=== PATIENT | female | born 1955 | race Caucasian/White ===

== ENCOUNTER 2018-01-03 16:24 | Inpatient (IN) | payer BC ==
[2018-01-03] MEDS: LORAZEPAM 2 MG INJ IV (21:57)
[2018-01-03] MEDS: SOD CHLORIDE 0.9% 1,000 ML IV (22:05)
[2018-01-03 22:18] LABS: ADD MAN DIFF? NO
[2018-01-03 22:26] LABS: WHITE BLOOD COUNT 13.3 10^3/ul (4.8-10.8)
[2018-01-03 22:26] LABS: BASOPHILS % 0.2 % (0.0-2.0); EOSINOPHILS % 0.2 % (0.0-7.0); HEMATOCRIT 38.7 % (37.0-47.0); HEMOGLOBIN 12.8 g/dl (12.0-16.0); LYMPHOCYTES # 2.7 10^3/ul (0.8-2.9); LYMPHOCYTES % 20.7 % (15.0-51.0); MEAN CORPUSCULAR HEMOGLOBIN 29.9 pg (29.0-33.0); MEAN CORPUSCULAR HGB CONC 33.1 g/dl (32.0-37.0); MEAN CORPUSCULAR VOLUME 90.4 fl (82.0-101.0); MEAN PLATELET VOLUME 9.4 fl (7.4-10.4); MONOCYTE # 1.2 10^3/ul (0.3-0.9); MONOCYTES % 8.7 % (0.0-11.0); NEUTROPHIL # 9.3 10^3/ul (1.6-7.5); NEUTROPHILS % 69.9 % (39.0-77.0); PLATELET COUNT 323 10^3/UL (140-415); RED BLOOD COUNT 4.28 10^6/ul (4.20-5.40); RED CELL DISTRIBUTION WIDTH 13.3 % (11.5-14.5)
[2018-01-03 22:36] LABS: ADD UMIC YES; UR ASCORBIC ACID NEGATIVE (NEGATIVE); UR BILIRUBIN (Dip) NEGATIVE (NEGATIVE); UR BLOOD (Dip) NEGATIVE (NEGATIVE); UR CLARITY SLIGHTLY CLOUDY (CLEAR); UR COLOR AMBER (YELLOW); UR GLUCOSE (Dip) NEGATIVE (NEGATIVE); UR KETONES (Dip) 1+ mg/dL (NEGATIVE); UR LEUKOCYTE ESTERASE (Dip) NEGATIVE Leu/ul (NEGATIVE); UR NITRITE (Dip) NEGATIVE (NEGATIVE); UR RBC 0 /HPF (0-5); UR SPECIFIC GRAVITY (Dip) 1.027 (1.003-1.030); UR TOTAL PROTEIN (Dip) 1+ mg/dl (NEGATIVE); UR UROBILINOGEN (Dip) 2+ mg/dL (NEGATIVE); UR WBC 0 /HPF (0-5)
[2018-01-03 22:52] LABS: INR 1.14; PROTIME 14.8 Sec (11.9-14.9); PT RATIO 1.2
[2018-01-03 22:53] LABS: PARTIAL THROMBOPLASTIN TIME 34.3 Sec (25.0-35.0)
[2018-01-03 22:56] LABS: ALANINE AMINOTRANSFERASE 50 IU/L (13-69); ALBUMIN 4.9 g/dl (3.3-4.9); ALBUMIN/GLOBULIN RATIO 1.13; ALKALINE PHOSPHATASE 98 IU/L (42-121); ANION GAP 20 (8-16); ASPARTATE AMINO TRANSFERASE 52 IU/L (15-46); BILIRUBIN,INDIRECT 0.7 mg/dl (0-1.1); BILIRUBIN,TOTAL 0.7 mg/dl (0.2-1.3); BLOOD UREA NITROGEN 32 mg/dl (7-20); CALCIUM 9.5 mg/dl (8.4-10.2); CARBON DIOXIDE 29 mmol/L (21-31); CHLORIDE 102 mmol/L (97-110); CREATININE 0.84 mg/dl (0.44-1.00); GLUCOSE 114 mg/dl (70-220); POTASSIUM 3.4 mmol/L (3.5-5.1); SODIUM 148 mmol/L (135-144); TOTAL PROTEIN 9.2 g/dl (6.1-8.1)
[2018-01-03 23:11] LABS: LACTIC ACID 1.9 mmol/L (0.5-2.0)
[2018-01-04] MEDS ORDERED: ACETAMINOPHEN 325 MG TAB PO
[2018-01-04] MEDS ORDERED: ONDANSETRON 4 MG INJ IV ×2 (00:30)
[2018-01-04] MEDS ORDERED: NACL 0.9% 3 ML SYG IV (00:30)
[2018-01-04] MEDS ORDERED: ACETAMINOPHEN 650 MG SUPP PR (00:30)
[2018-01-04] MEDS: ACETAMINOPHEN 500 MG TAB PO (00:39)
[2018-01-04 00:44] LABS: LACTIC ACID 1.2 mmol/L (0.5-2.0)
[2018-01-04] MEDS ORDERED: LORAZEPAM 2 MG INJ IV (01:30)
[2018-01-04] MEDS: D5-0.2 NACL + KCL 20 MEQ 1,000 ML IV ×3 (02:48→17:07)
[2018-01-04 07:09] LABS: ADD MAN DIFF? NO
[2018-01-04 07:26] LABS: WHITE BLOOD COUNT 9.4 10^3/ul (4.8-10.8)
[2018-01-04 07:26] LABS: BASOPHILS % 0.2 % (0.0-2.0); EOSINOPHILS # 0.1 10^3/ul (0.0-0.5); EOSINOPHILS % 1.4 % (0.0-7.0); HEMATOCRIT 34.2 % (37.0-47.0); HEMOGLOBIN 11.1 g/dl (12.0-16.0); LYMPHOCYTES # 2.6 10^3/ul (0.8-2.9); LYMPHOCYTES % 27.2 % (15.0-51.0); MEAN CORPUSCULAR HEMOGLOBIN 30.3 pg (29.0-33.0); MEAN CORPUSCULAR HGB CONC 32.5 g/dl (32.0-37.0); MEAN CORPUSCULAR VOLUME 93.4 fl (82.0-101.0); MEAN PLATELET VOLUME 9.7 fl (7.4-10.4); MONOCYTE # 0.9 10^3/ul (0.3-0.9); MONOCYTES % 9.4 % (0.0-11.0); NEUTROPHIL # 5.8 10^3/ul (1.6-7.5); NEUTROPHILS % 61.5 % (39.0-77.0); PLATELET COUNT 260 10^3/UL (140-415); RED BLOOD COUNT 3.66 10^6/ul (4.20-5.40); RED CELL DISTRIBUTION WIDTH 13.5 % (11.5-14.5)
[2018-01-04 07:36] LABS: LACTIC ACID 0.9 mmol/L (0.5-2.0)
[2018-01-04 07:55] LABS: ALANINE AMINOTRANSFERASE 40 IU/L (13-69); ALBUMIN 3.5 g/dl (3.3-4.9); ALBUMIN/GLOBULIN RATIO 0.94; ALKALINE PHOSPHATASE 72 IU/L (42-121); ANION GAP 11 (8-16); ASPARTATE AMINO TRANSFERASE 41 IU/L (15-46); BILIRUBIN,INDIRECT 0.6 mg/dl (0-1.1); BILIRUBIN,TOTAL 0.6 mg/dl (0.2-1.3); BLOOD UREA NITROGEN 23 mg/dl (7-20); CALCIUM 8.8 mg/dl (8.4-10.2); CARBON DIOXIDE 30 mmol/L (21-31); CHLORIDE 109 mmol/L (97-110); CHOL/HDL RATIO 3.4 RATIO; CHOLESTEROL 134 mg/dl (100-200); CREATININE 0.56 mg/dl (0.44-1.00); GLUCOSE 101 mg/dl (70-220); HDL CHOLESTEROL 39 mg/dl (35-98); LDL CHOLESTEROL,CALCULATED 75 mg/dl; MAGNESIUM 2.3 mg/dl (1.7-2.5); POTASSIUM 3.4 mmol/L (3.5-5.1); SODIUM 147 mmol/L (135-144); TOTAL PROTEIN 7.2 g/dl (6.1-8.1); TRIGLYCERIDES 102 mg/dl (0-149)
[2018-01-04 07:57] LABS: HEMOGLOBIN A1C 5.4 % (0-5.9)
[2018-01-04] MEDS ORDERED: POTASSIUM CHLORIDE (SR) 20 MEQ TAB PO (08:51)
[2018-01-04 08:52] LABS: THYROID STIMULATING HORMONE 0.076 MIU/L (0.465-4.680)
[2018-01-04] MEDS: POTASSIUM CHLORIDE 100 ML IVPB ×2 (10:03→12:03)
[2018-01-04 14:41] LABS: FREE T4 (FREE THYROXINE) 1.33 ng/dl (0.78-2.44); T4 (THYROXINE) 9.8 ug/dl (5.5-11.0)
[2018-01-04 16:25] LABS: AMPHETAMINE/METHAMPHETAMINE Negative (NEGATIVE); BARBITURATES Negative (NEGATIVE); BENZODIAZEPINES Positive (NEGATIVE); CANNABINOIDS Negative (NEGATIVE); COCAINE Negative (NEGATIVE); OPIATES Negative (NEGATIVE)
[2018-01-04] MEDS: HALOPERIDOL 5 MG INJ IM (18:53)
[2018-01-05 04:56] LABS: ADD MAN DIFF? NO
[2018-01-05 05:05] LABS: BASOPHILS % 0.3 % (0.0-2.0); EOSINOPHILS # 0.2 10^3/ul (0.0-0.5); EOSINOPHILS % 2.8 % (0.0-7.0); HEMOGLOBIN 11.4 g/dl (12.0-16.0); LYMPHOCYTES # 2.3 10^3/ul (0.8-2.9); LYMPHOCYTES % 28.3 % (15.0-51.0); MEAN CORPUSCULAR HEMOGLOBIN 30.1 pg (29.0-33.0); MEAN CORPUSCULAR HGB CONC 32.6 g/dl (32.0-37.0); MEAN CORPUSCULAR VOLUME 92.3 fl (82.0-101.0); MEAN PLATELET VOLUME 9.3 fl (7.4-10.4); MONOCYTE # 0.6 10^3/ul (0.3-0.9); MONOCYTES % 7.4 % (0.0-11.0); NEUTROPHIL # 4.9 10^3/ul (1.6-7.5); NEUTROPHILS % 60.9 % (39.0-77.0); PLATELET COUNT 234 10^3/UL (140-415); RED BLOOD COUNT 3.79 10^6/ul (4.20-5.40); RED CELL DISTRIBUTION WIDTH 13.3 % (11.5-14.5)
[2018-01-05 05:27] LABS: ANION GAP 12 (8-16); BLOOD UREA NITROGEN 12 mg/dl (7-20); CALCIUM 8.7 mg/dl (8.4-10.2); CARBON DIOXIDE 31 mmol/L (21-31); CHLORIDE 107 mmol/L (97-110); GLUCOSE 90 mg/dl (70-220); MAGNESIUM 2.1 mg/dl (1.7-2.5); PHOSPHORUS 3.4 mg/dl (2.5-4.9); POTASSIUM 3.8 mmol/L (3.5-5.1); SODIUM 146 mmol/L (135-144)
[2018-01-05] MEDS: D5-0.2 NACL + KCL 20 MEQ 1,000 ML IV ×3 (06:29→23:55)
[2018-01-05] MEDS: HALOPERIDOL 5 MG INJ IM (12:43)
[2018-01-05] MEDS: LORAZEPAM 2 MG INJ IV (16:00)
[2018-01-05] MEDS: AMANTADINE 100 MG CAP PO (20:46)
[2018-01-06 07:01] LABS: ANION GAP 14 (8-16); BLOOD UREA NITROGEN 5 mg/dl (7-20); CALCIUM 8.5 mg/dl (8.4-10.2); CARBON DIOXIDE 27 mmol/L (21-31); CHLORIDE 107 mmol/L (97-110); CREATININE 0.46 mg/dl (0.44-1.00); GLUCOSE 103 mg/dl (70-220); MAGNESIUM 1.8 mg/dl (1.7-2.5); POTASSIUM 3.5 mmol/L (3.5-5.1); SODIUM 144 mmol/L (135-144)
[2018-01-06] MEDS: AMANTADINE 100 MG CAP PO ×2 (09:00→19:44)
[2018-01-06] MEDS: D5-0.2 NACL + KCL 20 MEQ 1,000 ML IV (13:59)
[2018-01-06] MEDS: LORAZEPAM 2 MG INJ IV ×3 (15:26→20:20)
[2018-01-06] MEDS ORDERED: LORAZEPAM 2 MG INJ IV (15:30)
[2018-01-07] MEDS: D5-0.2 NACL + KCL 20 MEQ 1,000 ML IV ×3 (01:15→18:22)
[2018-01-07 07:34] LABS: HIV 1&2 ANTIBODY NEGATIVE (NEGATIVE)
[2018-01-07] MEDS: AMANTADINE 100 MG CAP PO ×2 (08:35→21:00)
[2018-01-07 18:56] LABS: RAPID PLASMA REAGIN NONREACTIVE (NR)
[2018-01-07] MEDS: LORAZEPAM 2 MG INJ IV (20:30)
[2018-01-08] MEDS: D5-0.2 NACL + KCL 20 MEQ 1,000 ML IV ×3 (01:18→23:37)
[2018-01-08] MEDS: LORAZEPAM 2 MG INJ IV ×4 (02:30→22:13)
[2018-01-08 05:12] LABS: ADD MAN DIFF? NO
[2018-01-08 05:24] LABS: BASOPHILS % 0.3 % (0.0-2.0); EOSINOPHILS # 0.2 10^3/ul (0.0-0.5); EOSINOPHILS % 3.1 % (0.0-7.0); HEMATOCRIT 36.9 % (37.0-47.0); HEMOGLOBIN 12.1 g/dl (12.0-16.0); LYMPHOCYTES # 1.6 10^3/ul (0.8-2.9); LYMPHOCYTES % 26.8 % (15.0-51.0); MEAN CORPUSCULAR HEMOGLOBIN 29.9 pg (29.0-33.0); MEAN CORPUSCULAR HGB CONC 32.8 g/dl (32.0-37.0); MEAN CORPUSCULAR VOLUME 91.1 fl (82.0-101.0); MEAN PLATELET VOLUME 9.5 fl (7.4-10.4); MONOCYTE # 0.4 10^3/ul (0.3-0.9); MONOCYTES % 6.7 % (0.0-11.0); NEUTROPHIL # 3.8 10^3/ul (1.6-7.5); NEUTROPHILS % 62.8 % (39.0-77.0); PLATELET COUNT 279 10^3/UL (140-415); RED BLOOD COUNT 4.05 10^6/ul (4.20-5.40)
[2018-01-08 05:24] LABS: WHITE BLOOD COUNT 6.1 10^3/ul (4.8-10.8)
[2018-01-08 05:48] LABS: ANION GAP 14 (8-16); BLOOD UREA NITROGEN 3 mg/dl (7-20); CALCIUM 9.1 mg/dl (8.4-10.2); CARBON DIOXIDE 28 mmol/L (21-31); CHLORIDE 105 mmol/L (97-110); CREATININE 0.49 mg/dl (0.44-1.00); GLUCOSE 108 mg/dl (70-220); POTASSIUM 4.2 mmol/L (3.5-5.1); SODIUM 143 mmol/L (135-144)
[2018-01-08] MEDS: AMANTADINE 100 MG CAP PO ×2 (08:11→20:56)
[2018-01-09] MEDS ORDERED: VANCOMYCIN IV PER PHARMACY XX
[2018-01-09] MEDS: VANCOMYCIN 1 GM 250 ML IVPB (01:00)
[2018-01-09 06:08] LABS: ADD MAN DIFF? NO
[2018-01-09 06:10] LABS: WHITE BLOOD COUNT 5.9 10^3/ul (4.8-10.8)
[2018-01-09 06:10] LABS: BASOPHILS % 0.3 % (0.0-2.0); EOSINOPHILS # 0.3 10^3/ul (0.0-0.5); EOSINOPHILS % 4.2 % (0.0-7.0); HEMATOCRIT 36.6 % (37.0-47.0); HEMOGLOBIN 11.8 g/dl (12.0-16.0); LYMPHOCYTES # 2.3 10^3/ul (0.8-2.9); LYMPHOCYTES % 38.2 % (15.0-51.0); MEAN CORPUSCULAR HEMOGLOBIN 29.9 pg (29.0-33.0); MEAN CORPUSCULAR HGB CONC 32.2 g/dl (32.0-37.0); MEAN CORPUSCULAR VOLUME 92.9 fl (82.0-101.0); MONOCYTE # 0.5 10^3/ul (0.3-0.9); MONOCYTES % 8.4 % (0.0-11.0); NEUTROPHIL # 2.9 10^3/ul (1.6-7.5); NEUTROPHILS % 48.7 % (39.0-77.0); PLATELET COUNT 277 10^3/UL (140-415); RED BLOOD COUNT 3.94 10^6/ul (4.20-5.40); RED CELL DISTRIBUTION WIDTH 13.1 % (11.5-14.5)
[2018-01-09 06:35] LABS: ANION GAP 13 (8-16); BLOOD UREA NITROGEN 5 mg/dl (7-20); CARBON DIOXIDE 29 mmol/L (21-31); CHLORIDE 105 mmol/L (97-110); CREATININE 0.58 mg/dl (0.44-1.00); GLUCOSE 96 mg/dl (70-220); POTASSIUM 3.9 mmol/L (3.5-5.1); SODIUM 143 mmol/L (135-144)
[2018-01-09] MEDS: AMANTADINE 100 MG CAP PO ×2 (08:15→20:14)
[2018-01-09] MEDS: LORAZEPAM 2 MG INJ IV ×3 (09:46→23:35)
[2018-01-09] MEDS: D5-0.2 NACL + KCL 20 MEQ 1,000 ML IV ×2 (12:47→19:48)
[2018-01-09] MEDS: VANCOMYCIN 750 MG in SOD CHLORIDE 0.9% 150 ML IVPB (13:47)
[2018-01-10] MEDS: VANCOMYCIN 750 MG in SOD CHLORIDE 0.9% 150 ML IVPB ×2 (01:00→13:40)
[2018-01-10] MEDS: D5-0.2 NACL + KCL 20 MEQ 1,000 ML IV ×3 (03:00→17:33)
[2018-01-10 05:53] LABS: ADD MAN DIFF? NO
[2018-01-10 06:03] LABS: BASOPHILS % 0.3 % (0.0-2.0); EOSINOPHILS # 0.2 10^3/ul (0.0-0.5); EOSINOPHILS % 3.7 % (0.0-7.0); HEMATOCRIT 39.5 % (37.0-47.0); HEMOGLOBIN 12.8 g/dl (12.0-16.0); LYMPHOCYTES # 1.9 10^3/ul (0.8-2.9); LYMPHOCYTES % 32.4 % (15.0-51.0); MEAN CORPUSCULAR HGB CONC 32.4 g/dl (32.0-37.0); MEAN CORPUSCULAR VOLUME 92.5 fl (82.0-101.0); MEAN PLATELET VOLUME 9.1 fl (7.4-10.4); MONOCYTE # 0.5 10^3/ul (0.3-0.9); MONOCYTES % 7.7 % (0.0-11.0); NEUTROPHIL # 3.3 10^3/ul (1.6-7.5); NEUTROPHILS % 55.6 % (39.0-77.0); PLATELET COUNT 289 10^3/UL (140-415); RED BLOOD COUNT 4.27 10^6/ul (4.20-5.40)
[2018-01-10 06:03] LABS: WHITE BLOOD COUNT 5.9 10^3/ul (4.8-10.8)
[2018-01-10 06:36] LABS: ANION GAP 16 (8-16); BLOOD UREA NITROGEN 4 mg/dl (7-20); CALCIUM 9.5 mg/dl (8.4-10.2); CARBON DIOXIDE 29 mmol/L (21-31); CHLORIDE 105 mmol/L (97-110); CREATININE 0.56 mg/dl (0.44-1.00); GLUCOSE 109 mg/dl (70-220); POTASSIUM 4.7 mmol/L (3.5-5.1); SODIUM 145 mmol/L (135-144)
[2018-01-10] MEDS: AMANTADINE 100 MG CAP PO ×2 (08:28→21:00)
[2018-01-10] MEDS: LORAZEPAM 2 MG INJ IV ×2 (10:27→17:29)
[2018-01-10 13:04] LABS: VANCOMYCIN,TROUGH 10.9 ug/ml (10.0-20.0)
[2018-01-10 20:27] LABS: INR 0.99; PROTIME 13.2 Sec (11.9-14.9)
[2018-01-11] MEDS: LORAZEPAM 2 MG INJ IV ×4 (00:28→20:49)
[2018-01-11] MEDS: VANCOMYCIN 750 MG in SOD CHLORIDE 0.9% 150 ML IVPB ×2 (00:28→14:57)
[2018-01-11] MEDS: D5-0.2 NACL + KCL 20 MEQ 1,000 ML IV ×3 (05:16→20:53)
[2018-01-11] MEDS: AMANTADINE 100 MG CAP PO ×2 (09:00→20:33)
[2018-01-11 09:04] LABS: ADD MAN DIFF? NO
[2018-01-11 09:15] LABS: WHITE BLOOD COUNT 6.4 10^3/ul (4.8-10.8)
[2018-01-11 09:15] LABS: BASOPHILS % 0.3 % (0.0-2.0); EOSINOPHILS # 0.2 10^3/ul (0.0-0.5); EOSINOPHILS % 3.1 % (0.0-7.0); HEMATOCRIT 37.4 % (37.0-47.0); HEMOGLOBIN 12.4 g/dl (12.0-16.0); LYMPHOCYTES # 1.9 10^3/ul (0.8-2.9); MEAN CORPUSCULAR HEMOGLOBIN 30.4 pg (29.0-33.0); MEAN CORPUSCULAR HGB CONC 33.2 g/dl (32.0-37.0); MEAN CORPUSCULAR VOLUME 91.7 fl (82.0-101.0); MONOCYTE # 0.6 10^3/ul (0.3-0.9); NEUTROPHIL # 3.7 10^3/ul (1.6-7.5); NEUTROPHILS % 57.3 % (39.0-77.0); PLATELET COUNT 246 10^3/UL (140-415); RED BLOOD COUNT 4.08 10^6/ul (4.20-5.40); RED CELL DISTRIBUTION WIDTH 13.2 % (11.5-14.5)
[2018-01-11 09:24] LABS: ANION GAP 11 (8-16); BLOOD UREA NITROGEN 5 mg/dl (7-20); CALCIUM 9.2 mg/dl (8.4-10.2); CARBON DIOXIDE 28 mmol/L (21-31); CHLORIDE 110 mmol/L (97-110); CREATININE 0.55 mg/dl (0.44-1.00); GLUCOSE 101 mg/dl (70-220); POTASSIUM 4.8 mmol/L (3.5-5.1); SODIUM 144 mmol/L (135-144)
[2018-01-11] MEDS: PROPOFOL 60 ML (12:56)
[2018-01-11] MEDS: LIDOCAINE 2% (SDV) 5 ML INJ (12:56)
[2018-01-11] MEDS: HALOPERIDOL 5 MG INJ IM (16:26)
[2018-01-11] MEDS: HYDROCODONE/APAP (5/325) TAB PEG (20:38)
[2018-01-12] MEDS: VANCOMYCIN 750 MG in SOD CHLORIDE 0.9% 150 ML IVPB ×2 (00:19→12:32)
[2018-01-12] MEDS: LORAZEPAM 2 MG INJ IV ×3 (03:03→17:23)
[2018-01-12] MEDS: HYDROCODONE/APAP (5/325) TAB PEG ×3 (03:04→17:23)
[2018-01-12 06:19] LABS: ADD MAN DIFF? NO
[2018-01-12 06:36] LABS: BASOPHILS % 0.2 % (0.0-2.0); EOSINOPHILS # 0.1 10^3/ul (0.0-0.5); EOSINOPHILS % 0.6 % (0.0-7.0); HEMATOCRIT 37.1 % (37.0-47.0); HEMOGLOBIN 12.1 g/dl (12.0-16.0); LYMPHOCYTES # 1.4 10^3/ul (0.8-2.9); LYMPHOCYTES % 13.4 % (15.0-51.0); MEAN CORPUSCULAR HEMOGLOBIN 29.7 pg (29.0-33.0); MEAN CORPUSCULAR HGB CONC 32.6 g/dl (32.0-37.0); MEAN CORPUSCULAR VOLUME 90.9 fl (82.0-101.0); MEAN PLATELET VOLUME 9.4 fl (7.4-10.4); MONOCYTE # 0.5 10^3/ul (0.3-0.9); MONOCYTES % 4.9 % (0.0-11.0); NEUTROPHIL # 8.5 10^3/ul (1.6-7.5); NEUTROPHILS % 80.6 % (39.0-77.0); PLATELET COUNT 262 10^3/UL (140-415); RED BLOOD COUNT 4.08 10^6/ul (4.20-5.40); RED CELL DISTRIBUTION WIDTH 13.1 % (11.5-14.5)
[2018-01-12 06:36] LABS: WHITE BLOOD COUNT 10.5 10^3/ul (4.8-10.8)
[2018-01-12 07:01] LABS: ANION GAP 14 (8-16); BLOOD UREA NITROGEN 7 mg/dl (7-20); CARBON DIOXIDE 27 mmol/L (21-31); CHLORIDE 105 mmol/L (97-110); CREATININE 0.58 mg/dl (0.44-1.00); GLUCOSE 135 mg/dl (70-220); POTASSIUM 3.5 mmol/L (3.5-5.1); SODIUM 142 mmol/L (135-144)
[2018-01-12] MEDS: AMANTADINE 100 MG CAP PO ×2 (09:36→20:44)
[2018-01-12] MEDS: D5-0.2 NACL + KCL 20 MEQ 1,000 ML IV (09:59)
[2018-01-13] MEDS: VANCOMYCIN 750 MG in SOD CHLORIDE 0.9% 150 ML IVPB ×2 (00:16→12:48)
[2018-01-13] MEDS: HYDROCODONE/APAP (5/325) TAB PEG ×4 (00:21→20:47)
[2018-01-13] MEDS: LORAZEPAM 2 MG INJ IV ×3 (00:21→18:08)
[2018-01-13] MEDS: AMANTADINE 100 MG CAP PO ×2 (08:45→20:44)
[2018-01-13] MEDS ORDERED: FUROSEMIDE 20 MG TAB PO (10:30)
[2018-01-13] MEDS: DIAZEPAM 5 MG TAB PO (12:55)
[2018-01-14] MEDS: VANCOMYCIN 750 MG in SOD CHLORIDE 0.9% 150 ML IVPB ×2 (00:26→13:19)
[2018-01-14] MEDS: HYDROCODONE/APAP (5/325) TAB PEG ×2 (02:32→08:24)
[2018-01-14] MEDS: LORAZEPAM 2 MG INJ IV ×2 (02:32→10:31)
[2018-01-14] MEDS: DIAZEPAM 5 MG TAB PO (08:24)
[2018-01-14] MEDS: AMANTADINE 100 MG CAP PO ×2 (08:24→21:55)
[2018-01-14] MEDS: FUROSEMIDE 20 MG TAB PO (08:25)
[2018-01-14] MEDS: LORAZEPAM 0.5 MG TAB PO (15:50)
[2018-01-14] MEDS: HALOPERIDOL 5 MG INJ IM (23:26)
[2018-01-15] MEDS: VANCOMYCIN 750 MG in SOD CHLORIDE 0.9% 150 ML IVPB ×2 (00:52→14:11)
[2018-01-15] MEDS: LORAZEPAM 0.5 MG TAB PO ×2 (01:56→17:06)
[2018-01-15] MEDS: AMANTADINE 100 MG CAP PO ×2 (08:46→21:15)
[2018-01-15] MEDS: DIAZEPAM 5 MG TAB PO (08:46)
[2018-01-15] MEDS: FUROSEMIDE 20 MG TAB PO (08:46)
[2018-01-15] MEDS: HYDROCODONE/APAP (5/325) TAB PEG ×2 (08:51→17:06)
[2018-01-15] MEDS: POLYETHYLENE GLYCOL 17 GM PACKET GTB (14:11)
[2018-01-16] MEDS: LORAZEPAM 0.5 MG TAB PO ×2 (04:17→23:22)
[2018-01-16] MEDS: AMANTADINE 100 MG CAP PO ×2 (09:01→21:35)
[2018-01-16] MEDS: FUROSEMIDE 20 MG TAB PO (09:02)
[2018-01-16] MEDS: MAGNESIUM HYDROXIDE 30ML CUP PO (18:17)
[2018-01-16] MEDS: HYDROCODONE/APAP (5/325) TAB PEG (21:35)
[2018-01-17] MEDS: FUROSEMIDE 20 MG TAB PO (09:13)
[2018-01-17] MEDS: AMANTADINE 100 MG CAP PO (09:13)
[2018-01-17] MEDS: LORAZEPAM 0.5 MG TAB PO (13:12)
== END 2018-01-17 15:05 | disposition home health service (06) | DRG 64 ==
LOC: E/R 16:24 → PP2 23:57 → MS2 01-08 20:51 → ICU 01-07 12:55 → PP2 23:57
PROC: 0DH63UZ Insertion of Feeding Device into Stomach, Percutaneous Approach (ICD-10-PCS; principal; 2018-01-11 12:50)
DX: I62.01 Nontraumatic acute subdural hemorrhage (principal); G92 Toxic encephalopathy; E43 Unspecified severe protein-calorie malnutrition; G93.6 Cerebral edema; E87.0 Hyperosmolality and hypernatremia; R78.81 Bacteremia; R13.10 Dysphagia, unspecified; G20 Parkinson's disease; E86.0 Dehydration; F41.9 Anxiety disorder, unspecified; E05.80 Other thyrotoxicosis without thyrotoxic crisis or storm; Z68.25 Body mass index [BMI] 25.0-25.9, adult; F13.90 Sedative, hypnotic, or anxiolytic use, unspecified, uncomplicated
CPT/HCPCS: 36415; 70450; 70490; 70551; 71045; 74018; 80048; 80053; 80061; 80202; 80307; 81001; 82607; 83036; 83605; 83735; 84100; 84436; 84439; 84443; 85025; 85610; 85730; 86592; 86703; 87040; 87081; 87086; 87400; 92522; 92526; 92610; 93005; 93306; 96374; 99285-25; G0378

== ENCOUNTER 2018-01-17 20:59 | Emergency (ER) | payer BC ==
[2018-01-18] MEDS: LORAZEPAM 0.5 MG TAB GTB (01:13)
[2018-01-18] MEDS: FUROSEMIDE 20 MG TAB GTB (01:13)
[2018-01-18] MEDS: AMANTADINE 100 MG CAP GTB (01:14)
== END 2018-01-18 11:26 | disposition home or self-care (01) ==
LOC: E/R 20:59
DX: Z71.89 Other specified counseling (principal); R40.2352 Coma scale, best motor response, localizes pain, at arrival to emergency department; G20 Parkinson's disease; R40.2222 Coma scale, best verbal response, incomprehensible words, at arrival to emergency department; R40.2142 Coma scale, eyes open, spontaneous, at arrival to emergency department
CPT/HCPCS: 99284

== ENCOUNTER 2018-02-22 09:56 | Day surgery (SDC) | payer BC ==
[2018-02-22] MEDS ORDERED: LIDOCAINE 2% (SDV) 5 ML INJ (12:22)
[2018-02-22] MEDS ORDERED: PROPOFOL 20 ML (12:22)
== END 2018-02-22 15:35 | disposition home or self-care (01) ==
LOC: GIL 09:56
DX: Z43.1 Encounter for attention to gastrostomy (principal); K44.9 Diaphragmatic hernia without obstruction or gangrene; G20 Parkinson's disease; F02.80 Dementia in other diseases classified elsewhere, unspecified severity, without behavioral disturbance, psychotic disturbance, mood disturbance, and anxiety
CPT/HCPCS: 43247